=== PATIENT | male | born 1970 | race Caucasian/White ===

== ENCOUNTER 2021-03-21 10:17 | Outpatient (RCR) | payer BC | END 2021-04-13 | disposition home or self-care (01) | LOC: ONC 10:17 | PROVIDERS: ATTEND Radiology Radiation Oncology | DX: Z51.0 Encounter for antineoplastic radiation therapy (principal); C61 Malignant neoplasm of prostate | CPT/HCPCS: 77300; 77301; 77334; 77336; 77338; 77385; 99205 ==

== ENCOUNTER 2021-05-15 10:42 | Outpatient (RCR) | payer BC | END 2021-06-27 | disposition home or self-care (01) | LOC: ONC 10:42 | PROVIDERS: ATTEND Radiology Radiation Oncology | DX: C61 Malignant neoplasm of prostate (principal) | CPT/HCPCS: 84153; G0463; 99213 ==

== ENCOUNTER 2021-11-13 09:40 | Outpatient (RCR) | payer BC | END 2021-11-25 | LOC: ONC 09:40 | PROVIDERS: ATTEND Radiology Radiation Oncology | DX: C67.9 Malignant neoplasm of bladder, unspecified (principal) | CPT/HCPCS: 84153; G0463; 36415; 99213 ==